=== PATIENT | female | born 1995 | race Caucasian/White ===

== ENCOUNTER 2018-07-12 21:14 | Emergency (ER) | payer OTHER ==
[2018-07-12 21:25] VITALS: BP 119/66
--- NOTE | 2018-07-12 21:45 | PHYS DOC ---
Past History Past Medical History: No Pertinent History Additional Past Surgical Histo: Tendon Repair Adult General [facility] HPI Patient is a 22-year-old female who presents to the emergency department for evaluation. The patient states that on Monday night, she began expressing some diarrhea and dry heaves. She has had some generalized abdominal discomfort. She has not had any fevers or chills. This occurred after a few days of flulike symptoms, although she tested negative for the flu by her PCPs office. She has not had any black or bloody stools, and has had more dry heaves of actual vomiting. She has not had any bloody emesis. She denies any recent travel or antibiotic use. There are no alleviating or exacerbating factors to her symptoms. Review of Systems Review of Systems Constitutional: Denies recent fever or chills [] Eyes: Denies change in visual acuity, redness, or eye pain [] HENT: Denies nasal congestion or sore throat [] Respiratory: Denies cough or shortness of breath [] Cardiovascular:The patient denies any shortness of breath, chest pain, palpitations, or orthopnea [] GI: No additional information not addressed in HPI [] : Denies dysuria or hematuria [] Musculoskeletal: Denies back pain or joint pain [] Integument: Denies rash or skin lesions [] Neurologic: Denies headache, focal weakness or sensory changes [] Endocrine: Denies polyuria or polydipsia [] All other systems were reviewed and found to be within normal limits, except as documented in this note. Physical Exam Physical Exam PHYSICAL EXAM: CONSTITUTIONAL: Well developed, well nourished HEAD: normocephalic, atraumatic EENT: PERRL, EOMI. Conjunctivae normal color, sclerae non-icteric; moist mucous membranes. NECK: Supple, non-tender; no meningismus. LUNGS: Lungs CTA, breathing even and unlabored. Normal air movement. HEART: Regular rate and rhythm, no murmur CHEST: No deformity; non-tender ABDOMEN: The abdomen is soft, and non-tender, no masses or bruits. EXTREM: Normal ROM; no deformity, no calf tenderness. Normal pulses palpable in all extremities. There is no pedal edema. SKIN: No rash; no diaphoresis NEURO: Alert; normal speech and cognition; CN's grossly intact; strength grossly intact without focal deficit. BACK: No CVA TTP. EKG EKG [] Radiology/Procedures Radiology/Procedures [] Course & Med Decision Making Course & Med Decision Making Patient's condition remains stable. Her exam is rather benign, and her history is suggestive of a viral gastritis. I discussed doing some lab testing, but both myself and the patient felt it was low yield and she declined. She has Zofran at home which I encouraged her to continue to use, as well as Imodium, the need for close PCP follow-up was discussed as were return precautions. Dragon Disclaimer Dragon Disclaimer This electronic medical record was generated, in whole or in part, using a voice recognition dictation system. Departure Departure: Impression: Primary Impression: Nausea vomiting and diarrhea Disposition: HOME, SELF-CARE Condition: STABLE Patient Instructions: Viral Gastroenteritis LOUISE PAIZ MD Jul 12, 2018 21:45
== END 2018-07-12 21:47 | disposition home or self-care (01) ==
LOC: ER 21:14
DX: R19.7 Diarrhea, unspecified (principal); R11.2 Nausea with vomiting, unspecified; R10.84 Generalized abdominal pain
CPT/HCPCS: 99281

== ENCOUNTER 2020-07-06 22:12 | Emergency (ER) | payer OTHER ==
[~2020-07-06] VITALS: Ht 154.9 cm; Wt 54.1 kg
[2020-07-06 22:23] VITALS: BP 127/100
--- NOTE | 2020-07-06 22:26 | PHYS DOC ---
Past History Past Medical History: No Pertinent History Past Surgical History: Other Additional Past Surgical Histo: Tendon Repair Alcohol Use: None Drug Use: None General Adult EDM: Chief Complaint: FOOT INJURY PAIN HPI: HPI: " I was moving a fire pit 2 days ago.. 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 Patient has obvious swelling and discoloration of left first toe. There is also pain and midfoot. Pain with weightbearing on midfoot. Distal neurovascular appears to be intact. Patient denies depression. No history of travel. No specific ill contacts. Follows at [facility] for care. Review of Systems: Review of Systems: Constitutional: Denies fever or chills Eyes: Denies change in visual acuity HENT: Denies nasal congestion or sore throat Respiratory: Denies cough or shortness of breath Cardiovascular: Denies chest pain or edema GI: Denies abdominal pain, nausea, vomiting, bloody stools or diarrhea : Denies dysuria Musculoskeletal: Complains of left foot pain Integument: Denies rash Neurologic: Denies headache, focal weakness or sensory changes Endocrine: Denies polyuria or polydipsia Lymphatic: Denies swollen glands Psychiatric: Denies depression or anxiety Family History: Family History: Noncontributory to presentation Current Medications: Current Meds: See nursing for home meds Allergies: Allergies: Allergies Coded Allergies Type Severity Reaction Last Updated Verified No Known Drug Allergies 07/12/18 No Physical Exam: PE: Constitutional: Well developed, well nourished, no acute distress, non-toxic appearance. [] HENT: Normocephalic, atraumatic, bilateral external ears normal, oropharynx moist, no oral exudates, nose normal. [] Eyes: PERRLA, EOMI, conjunctiva normal, no discharge. [] Neck: Normal range of motion, no tenderness, supple, no stridor. [] Cardiovascular:Heart rate regular rhythm, no murmur [] Lungs & Thorax: Bilateral breath sounds clear to auscultation [] Abdomen: Bowel sounds normal, soft, no tenderness, no masses, no pulsatile masses. [] Skin: Warm, dry, no erythema, no rash. [] Back: No tenderness, no CVA tenderness. [] Extremities: No tenderness, no cyanosis, no clubbing, ROM intact, no edema. [Except findings in left foot Neurologic: Alert and oriented X 3, normal motor function, normal sensory function, no focal deficits noted. [] Psychologic: Affect normal, judgement normal, mood normal. [] EKG: EKG: [] Radiology/Procedures: Radiology/Procedures: [][place] [address] IMAGING REPORT Signed PATIENT: BHARGAVI GILLISOUNT: [id number] : 1995 LOCATION: ER AGE: 24 SEX: F EXAM STATUS: REG ER ORD. PHYSICIAN: MICHELE PURVIS MD REASON: crush injury two days ago, BRUISING FROM GREAT TOE TO MID ARCH PROCEDURE: FOOT LEFT 3V XR FOOT_LEFT 3 VIEWS 07/06/2020 10:36 PM INDICATION: Crush injury 2 days ago. Bruising from great toe to the mid arch COMPARISON: None available. TECHNIQUE: 3 views of the left foot are provided. FINDINGS/ IMPRESSION: There is no acute fracture or dislocation. Joint spaces are maintained. Bone mineralization is within normal limits. Regional soft tissues are within normal limits. There is no soft tissue gas or osseous erosion. No radiopaque foreign body. Electronically signed by: Suleiman Barr MD (07/06/2020 10:51 PM) [facility] DICTATED AND SIGNED BY: SULEIMAN BARR MD DATE: 07/06/20 9997 CC: MICHELE PURVIS MD; DICK TOLLIVER DO, [facility] ~MTH0 0 Heart Score: C/O Chest Pain: N/A Risk Factors: Risk Factors: DM, Current or recent (<one month) smoker, HTN, HLP, family history of CAD, obesity. Risk Scores: Score 0 - 3: 2.5% MACE over next 6 weeks - Discharge Home Score 4 - 6: 20.3% MACE over next 6 weeks - Admit for Clinical Observation Score 7 - 10: 72.7% MACE over next 6 weeks - Early Invasive Strategies Course & Med Decision Making: Course & Med Decision Making Pertinent Labs and Imaging studies reviewed. (See chart for details). Ice, elevation, stiff shoe, rest, Tylenol and ibuprofen for pain. Follow-up [facility]. Return to the concerns. Impression: 1. Crush injury [] Dragon Disclaimer: Dragmonica Disclaimer: This electronic medical record was generated, in whole or in part, using a voice recognition dictation system. Departure Departure: Referrals: DICK TOLLIVER DO, [facility] (PCP) Scripts Hydrocodone/Ibuprofen (HYDROCODONE-IBUPROFEN 7.5-200 ) 1 Each Tablet 1 TAB PO PRN Q6HRS PRN for PAIN, #30 TAB 0 Refills Prov: MICHELE PURVIS MD 07/06/20 Acetaminophen (ACETAMINOPHEN) 500 Mg Tablet 1000 MG PO QIDPRN PRN for pain, fever, #120 TAB Prov: MICHELE PURVIS MD 07/06/20 Ibuprofen (Ibu) 600 Mg Tablet 600 MG PO QIDPRN PRN for pain, or fever, #120 TAB Prov: MICHELE PURVIS MD 07/06/20 Dragon Disclaimer This chart was dictated in whole or in part using Voice Recognition software in a busy, high-work load, and often noisy Emergency Department environment. It may contain unintended and wholly unrecognized errors or omissions. MICHELE PURVIS MD Jul 06, 2020 22:26
[2020-07-06] MEDS ORDERED: ACET500T68 PO (22:32)
[2020-07-06] MEDS ORDERED: HYDR-1179 PO (22:32)
[2020-07-06] MEDS ORDERED: IBUP-571 PO (22:32)
--- NOTE | 2020-07-06 22:53 | RAD ---
XR FOOT_LEFT 3 VIEWS 07/06/2020 10:36 PM INDICATION: Crush injury 2 days ago. Bruising from great toe to the mid arch COMPARISON: None available. TECHNIQUE: 3 views of the left foot are provided. FINDINGS/ IMPRESSION: There is no acute fracture or dislocation. Joint spaces are maintained. Bone mineralization is within normal limits. Regional soft tissues are within normal limits. There is no soft tissue gas or osseou s erosion. No radiopaque foreign body. Electronically signed by: Marimar Saenz MD (07/06/2020 10:51 PM) [facility]
== END 2020-07-06 23:48 | disposition home or self-care (01) ==
LOC: ER 22:12
DX: S97.82XA Crushing injury of left foot, initial encounter (principal); R60.0 Localized edema; Z98.890 Other specified postprocedural states; X58.XXXA Exposure to other specified factors, initial encounter; Y93.89 Activity, other specified; Y92.89 Other specified places as the place of occurrence of the external cause; Y99.8 Other external cause status
CPT/HCPCS: 73630; 99283